=== PATIENT | female | born 1990 | race Caucasian/White ===

== ENCOUNTER 2021-01-11 14:30 | Inpatient (IN) | payer BC, SELFPAY ==
[~2021-01-11] VITALS: Ht 172.7 cm; Wt 60.3 kg
[2021-01-11 14:39] VITALS: BP 135/75
--- NOTE | 2021-01-11 14:43 | NUR ---
PT TO AWAIT IN LOBBY
--- NOTE | 2021-01-11 17:15 | NUR ---
DR SAID EXAMINING PT
[2021-01-11] MEDS ORDERED: NACL 0.9% 1,000 ML IV ONE (17:25)
[2021-01-11] MEDS ORDERED: CEFEPIME 1,000 MG in DEXTROSE 5% 50 ML IV ONE (17:35)
[2021-01-11 17:46] LABS: APPEARANCE,URINE SL CLOUDY (CLEAR); BILIRUBIN,URINE NEGATIVE (NEGATIVE); BLOOD, URINE NEGATIVE (NEGATIVE); COLOR,URINE YELLOW (YELLOW); LEUKOCYTE ESTERASE ,URINE NEGATIVE (NEGATIVE); NITRITE, URINE NEGATIVE (NEGATIVE); UGLUCOSE NEGATIVE (NEGATIVE)
[2021-01-11 17:50] LABS: BASOPHILS % (AUTO) 0.4 % (0.0-2.0); EOSINOPHILS # (AUTO) 0.2 K/uL (0-0.4); EOSINOPHILS % (AUTO) 1.5 % (0.0-4.0); HEMATOCRIT 40.4 % (36-48); HEMOGLOBIN 13.4 g/dL (12.0-16.0); LYMPHOCYTES # (AUTO) 2.7 K/uL (2.5-16.5); LYMPHOCYTES % (AUTO) 23.1 % (20.5-51.1); MEAN CORPUSCULAR HEMOGLOBIN 31 pg (27-31); MEAN CORPUSCULAR HGB CONC 33 g/dL (33-37); MEAN CORPUSCULAR VOLUME 93.3 fL (80-94); MONOCYTES # (AUTO) 0.9 K/uL (0.8-1.0); MONOCYTES % (AUTO) 7.5 % (1.7-9.3); NEUTROPHILS % (AUTO) 67.5 % (42.2-75.2); PLATELET COUNT (AUTO) 316 K/uL (140-450); RED BLOOD CELL COUNT(AUTO) 4.33 MIL/uL (4.20-5.40); RED CELL DISTRIBUTION WIDTH 13.4 % (11.6-13.7); WHITE BLOOD COUNT (AUTO) 11.8 K/uL (4.8-10.8)
[2021-01-11] MEDS ORDERED: CEFEPIME 1,000 MG VIAL ONE (17:59)
[2021-01-11 18:33] LABS: ALBUMIN 3.8 g/dL (3.4-5.0); ANION GAP 16.1 (8-16); CARBON DIOXIDE 26.9 mmol/L (21-32); CREATININE 0.7 mg/dL (0.6-1.3); TOTAL BILIRUBIN 0.2 mg/dL (0.0-1.0)
--- NOTE | 2021-01-11 18:34 | NUR ---
30 Y/O F BIB SPOUSE FROM HOME, PATIENT PRESENTS TO ED WITH ABD CRAMPING, NAUSEA, URINARY URGENCY AND RETENTION. PT STATES SINCE BEGINNING OF (11 WEEKS) SHE HAS BEEN HAVING UTI SYMPTOMS AND WAS TOLD TO COME TO ER TO TRWAT ANTIBIOTIC RESISTANT BACTERIA; SKIN IS PINK/WARM/DRY; AAOX4 WITH EVEN AND STEADY GAIT; LUNGS CLEAR BL; HR EVEN AND REGULAR; PT DENIES ANY FEVER, CP, SOB, OR COUGH AT THIS TIME; VSS; PATIENT POSITIONED FOR COMFORT; HOB ELEVATED; BEDRAILS UP X2; BED DOWN. ER MD MADE AWARE OF PT STATUS. PMH: DENIES NKA 5G 4T 0P 0A 4L
[2021-01-11] MEDS ORDERED: MORPHINE SULFATE 2 MG/ML SYR IVP PRN (19:20)
[2021-01-11] MEDS ORDERED: POTASSIUM CHLORIDE 10 MEQ TABER PO PRN (19:20)
[2021-01-11] MEDS ORDERED: ONDANSETRON 4 MG/2 ML VIAL IVP PRN (19:20)
[2021-01-11] MEDS ORDERED: DOCUSATE SODIUM 100 MG GELCAP PO PRN (19:20)
[2021-01-11] MEDS ORDERED: MAG SULF 2000 MG/WATER PREMIX 50 ML IV PRN (19:20)
[2021-01-11] MEDS ORDERED: ACETAMINOPHEN 325 MG TAB PO PRN (19:20)
[2021-01-11] MEDS ORDERED: HYDROcodone/APAP 5/325 MG 1 TAB TAB PO PRN (19:20)
[2021-01-11] MEDS ORDERED: LORazepam 2 MG/ML VIAL IM/IVP PRN (19:20)
[2021-01-11] MEDS ORDERED: ZOLPIDEM 5 MG TAB PO PRN (19:20)
--- NOTE | 2021-01-11 19:20 | NUR ---
received report from Rebekah HICKS for continuity of care
[2021-01-11 20:03] LABS: PROTHROMBIN TIME 8.9 secs (10.8-13.4)
[2021-01-11] MEDS: NACL 0.9% 1,000 ML IV SCH (20:14)
[2021-01-11 20:20] LABS: CHOL/HDL RATIO 2.6 (1-4.5); FREE T4 (FREE THYROXINE) 0.91 ng/dL (0.76-1.46); PHOSPHORUS 4.2 mg/dL (2.5-4.9); THYROID STIMULATING HORMONE 0.22 uIU/mL (0.34-3.74)
[2021-01-11 20:20] LABS: BARBITURATE, URINE NEGATIVE ng/ml (NEG <=200); BENZODIAZEPINE, URINE NEGATIVE ng/mL (NEG <=200); CANNABINOID, URINE NEGATIVE ng/mL (NEG <=50); COCAINE, URINE NEGATIVE ng/mL (NEG <=300); OPIATE, URINE NEGATIVE ng/mL (NEG <=2000); PHENCYCLIDINE SCREEN,URINE NEGATIVE ng/mL (NEG <=25)
--- NOTE | 2021-01-11 20:37 | NUR ---
patient ambulated to the bathroom
--- NOTE | 2021-01-11 21:27 | NUR ---
Patient appears to be resting comfortably in bed. Vital Signs within normal limits. Respirations even and unlabored. Safety measures in place, will continue to monitor patient
--- NOTE | 2021-01-11 21:56 | NUR ---
patient ambulated to the bathroom
--- NOTE | 2021-01-11 22:05 | NUR ---
attached patients back on fluid, and cardiac monitors. Safety measures are in place. will continue to monitor patient.
--- NOTE | 2021-01-12 00:04 | NUR ---
patient ambulated to the bathroom
--- NOTE | 2021-01-12 00:26 | NUR ---
Patient will be admitted to care of [facility]. Admited to telemetry. Will go to [id number]. Belongings list completed. Report to Amie HICKS.
--- NOTE | 2021-01-12 00:45 | NUR ---
PT BROUGHT UP TO UNIT BY W/C, SHE IS AOX4 UZBEK SPEAKING AND ON ROOM AIR. PT HAS A 20G ON THE LEFT AC RUNNING NORMAL SALINE AT 100MLS/HR. PT DENIES ANY PAIN, SHE WAS ABLE TO AMBULATE TO THE TOILET AND BACK INDEPENDENTLY. PT REQUESTED A SANDWICH WHICH WAS GIVEN TO HER. IV SITE FLUSHED PATENT. MRSA SWAB DONE ADMISSION QUESTIONS ASKED AND ANSWERED. ALL UNIVERSAL PRECAUTIONS IN PLACE.
[2021-01-12 01:00] VITALS: BP 111/63
--- NOTE | 2021-01-12 01:00 | NUR ---
CALLED L AND D TO HAVE NURSE COME FOR THE TONES, PT MADE AWARE. PT MADE AWARE TO STRAIN URINE FOR CALCULI ORDERED. PT VERBALIZED UNDERSTANDING.
--- NOTE | 2021-01-12 02:30 | NUR ---
ROUNDS DONE, PT IN BED NO C/O VOICED, FLUIDS RUNNING ORDERED. ALL UNIVERSAL PRECAUTIONS IN PLACE.
--- NOTE | 2021-01-12 03:41 | NUR ---
TONES DONE AT BEDSIDE, HEART RATE IS 145-160 (NORMAL RANGE).
[2021-01-12 04:00] VITALS: BP 107/50
--- NOTE | 2021-01-12 05:00 | NUR ---
PT IN BED AROUSABLE TO NAME, LAB HERE TO DRAW BLOOD. V/S FOLLOWS: T 97.2 P 71 R 20 B/P 107/50 02 98% ON ROOM AIR. FLUIDS RUNNING ORDERED. NO C/O VOICED AT THIS TIME. ALL UNIVERSAL FALLS PRECAUTIONS IN PLACE.
[2021-01-12] MEDS: NACL 0.9% 1,000 ML IV SCH ×3 (05:33→18:13)
[2021-01-12 07:06] LABS: ALBUMIN 3.1 g/dL (3.4-5.0); ANION GAP 9.5 (8-16); CARBON DIOXIDE 26.4 mmol/L (21-32); CREATININE 0.6 mg/dL (0.6-1.3); POTASSIUM 3.9 mmol/L (3.5-5.1); TOTAL BILIRUBIN 0.2 mg/dL (0.0-1.0)
--- NOTE | 2021-01-12 07:10 | NUR ---
PATIENT HAS BEEN SCREENED AND CATEGORIZED LOW NUTRITION RISK. PATIENT WILL BE SEEN WITHIN 7 DAYS OF ADMISSION. 01/19/21 KELLY ZARATE MS, RDN
[2021-01-12 07:24] LABS: BASOPHILS % (AUTO) 0.3 % (0.0-2.0); EOSINOPHILS # (AUTO) 0.2 K/uL (0-0.4); EOSINOPHILS % (AUTO) 1.9 % (0.0-4.0); HEMATOCRIT 37.6 % (36-48); HEMOGLOBIN 12.9 g/dL (12.0-16.0); LYMPHOCYTES # (AUTO) 2.2 K/uL (2.5-16.5); LYMPHOCYTES % (AUTO) 22.8 % (20.5-51.1); MEAN CORPUSCULAR HEMOGLOBIN 32 pg (27-31); MEAN CORPUSCULAR HGB CONC 34 g/dL (33-37); MEAN CORPUSCULAR VOLUME 92.6 fL (80-94); MONOCYTES # (AUTO) 0.7 K/uL (0.8-1.0); MONOCYTES % (AUTO) 7.3 % (1.7-9.3); NEUTROPHILS # (AUTO) 6.5 K/uL (1.8-7.7); NEUTROPHILS % (AUTO) 67.7 % (42.2-75.2); PLATELET COUNT (AUTO) 269 K/uL (140-450); RED BLOOD CELL COUNT(AUTO) 4.06 MIL/uL (4.20-5.40); RED CELL DISTRIBUTION WIDTH 13.4 % (11.6-13.7); WHITE BLOOD COUNT (AUTO) 9.6 K/uL (4.8-10.8)
[2021-01-12 08:00] VITALS: BP 123/61
--- NOTE | 2021-01-12 08:00 | NUR ---
RECEIVED REPORT FROM WAREHOUSE INCENTIVE SELECTOR AT BEDSIDE FOR CONTINUITY OF CARE. PATIENT ALERT AWAKE ORIENTED X4, NOT IN DISTRESS NOTED. DENIES PAIN. ON IVF ON AND INFUSING WELL. ON MONITOR SHOWS SR. PATIENT IS CONCERNED REGARDING HER ANTIBIOTIC IF SHE WILL GET ONE TODAY. EXPLAINED TO HER THAT WE'RE JUST WAITING FOR THE DOCTOR TO DO ROUNDS, VERBALIZED UNDERSTANDING. WILL CONTINUE TO MONITOR.
[2021-01-12] MEDS ORDERED: PHENAZOPYRIDINE 100 MG TAB PO SCH (09:10)
--- NOTE | 2021-01-12 10:00 | NUR ---
SEEN BY DR. CHAPMAN AND EXPLAINED TO HER THE PLAN OF CARE.
[2021-01-12] MEDS: PHENAZOPYRIDINE 100 MG TAB PO SCH (10:33)
[2021-01-12] MEDS: CEFEPIME 1,000 MG in DEXTROSE 5% 50 ML IV SCH ×2 (10:33→21:39)
--- NOTE | 2021-01-12 11:00 | NUR ---
STARTED ON IV ANTIBIOTIC MAXIPIME AND PYRIDIUM. WILL CONTINUE TO MONITOR.
[2021-01-12 12:00] VITALS: BP 106/53
[2021-01-12 16:00] VITALS: BP 111/63
[2021-01-12] MEDS ORDERED: MAGNESIUM OXIDE 400 MG TAB PO SCH (16:50)
[2021-01-12] MEDS: MULTIVIT/MIN/CA/FE/FA 1 TAB PO SCH (18:11)
--- NOTE | 2021-01-12 19:00 | NUR ---
REPORT GIVEN TO IMPROVEMENT SPECIALIST NURSE AT BEDSIDE FOR CONTINUITY OF CARE. PATIENT IN STABLE CONDITION.
[2021-01-12 20:51] VITALS: BP 120/60
--- NOTE | 2021-01-12 22:18 | NUR ---
I RECEIVED PT IN BED FROM OUT GOING NURSE , PT IS ALERT ORIENTED , DENIES PAIN , VSS , ON RA CLEAR LUNGS ,ON IVF SL INTACT AND PATENT. SKIN IS INTACT .
[2021-01-13] VITALS: BP 125/70
--- NOTE | 2021-01-13 01:03 | NUR ---
PT IS SLEEPING WELL , VSS NO SIGN OF PAIN
[2021-01-13 04:00] VITALS: BP 128/74
[2021-01-13] MEDS: CEFEPIME 1,000 MG in DEXTROSE 5% 50 ML IV SCH ×3 (04:51→21:22)
[2021-01-13 07:23] LABS: BASOPHILS % (AUTO) 0.3 % (0.0-2.0); EOSINOPHILS # (AUTO) 0.2 K/uL (0-0.4); EOSINOPHILS % (AUTO) 1.9 % (0.0-4.0); HEMATOCRIT 37.6 % (36-48); HEMOGLOBIN 12.8 g/dL (12.0-16.0); LYMPHOCYTES % (AUTO) 22.3 % (20.5-51.1); MEAN CORPUSCULAR HEMOGLOBIN 32 pg (27-31); MEAN CORPUSCULAR HGB CONC 34 g/dL (33-37); MEAN CORPUSCULAR VOLUME 93.3 fL (80-94); MONOCYTES # (AUTO) 0.6 K/uL (0.8-1.0); MONOCYTES % (AUTO) 7.1 % (1.7-9.3); NEUTROPHILS # (AUTO) 6.1 K/uL (1.8-7.7); NEUTROPHILS % (AUTO) 68.4 % (42.2-75.2); PLATELET COUNT (AUTO) 278 K/uL (140-450); RED BLOOD CELL COUNT(AUTO) 4.03 MIL/uL (4.20-5.40); RED CELL DISTRIBUTION WIDTH 13.3 % (11.6-13.7); WHITE BLOOD COUNT (AUTO) 8.9 K/uL (4.8-10.8)
[2021-01-13 07:36] LABS: ALBUMIN 3.3 g/dL (3.4-5.0); ANION GAP 10.6 (8-16); CREATININE 0.6 mg/dL (0.6-1.3); POTASSIUM 3.6 mmol/L (3.5-5.1); TOTAL BILIRUBIN 0.4 mg/dL (0.0-1.0)
[2021-01-13] MEDS: MULTIVIT/MIN/CA/FE/FA 1 TAB PO SCH (09:00)
[2021-01-13] MEDS: PHENAZOPYRIDINE 100 MG TAB PO SCH (12:09)
[2021-01-13] MEDS: NACL 0.9% 1,000 ML IV SCH ×2 (12:11→21:20)
[2021-01-13 14:28] VITALS: BP 117/76
[2021-01-13 20:00] VITALS: BP 109/73
--- NOTE | 2021-01-13 20:00 | NUR ---
PATIENT WAS RECEIVED AWAKE AND ALERT, NO S/S OF DISTRESS NOR GRIMACING FOR PAIN.
--- NOTE | 2021-01-13 21:00 | NUR ---
DUE IV MED WAS GIVEN PIGGYBACK TOLERATED WELL.
[2021-01-14] VITALS: BP 126/65
--- NOTE | 2021-01-14 | NUR ---
PATIENT AMBULATED TO THE BATHROOM TO VOID.
--- NOTE | 2021-01-14 02:00 | NUR ---
PATIENT WAS ASLEEP CALMLY IN HER BED.
[2021-01-14 04:00] VITALS: BP 119/70
[2021-01-14] MEDS: CEFEPIME 1,000 MG in DEXTROSE 5% 50 ML IV SCH ×2 (04:39→12:50)
[2021-01-14 06:46] LABS: BASOPHILS % (AUTO) 0.3 % (0.0-2.0); EOSINOPHILS # (AUTO) 0.2 K/uL (0-0.4); HEMATOCRIT 37.9 % (36-48); HEMOGLOBIN 12.7 g/dL (12.0-16.0); LYMPHOCYTES % (AUTO) 23.8 % (20.5-51.1); MEAN CORPUSCULAR HEMOGLOBIN 31 pg (27-31); MEAN CORPUSCULAR HGB CONC 34 g/dL (33-37); MEAN CORPUSCULAR VOLUME 93.4 fL (80-94); MONOCYTES # (AUTO) 0.5 K/uL (0.8-1.0); NEUTROPHILS # (AUTO) 5.7 K/uL (1.8-7.7); NEUTROPHILS % (AUTO) 67.9 % (42.2-75.2); PLATELET COUNT (AUTO) 270 K/uL (140-450); RED BLOOD CELL COUNT(AUTO) 4.05 MIL/uL (4.20-5.40); WHITE BLOOD COUNT (AUTO) 8.4 K/uL (4.8-10.8)
[2021-01-14] MEDS: NACL 0.9% 1,000 ML IV SCH ×2 (06:53→12:58)
--- NOTE | 2021-01-14 07:25 | NUR ---
RECEIVED REPORT FROM DISTRICT SERVICE MANAGER NURSE. PATIENT SITTING IN BED. NO DISTRESS NOTED. DENIES ANY PAIN. AAOX4, SKIN INTACT. IV SITE INTACT, PATENT, AND INFUSING IVF PER MD ORDERS. REVIEWED PLAN OF CARE WITH PATIENT. PATIENT VERBALIZED UNDERSTANDING. SAFETY MEASURES IN PLACE, CALL LIGHT WITHIN REACH. WILL CONTINUE TO MONITOR.
--- NOTE | 2021-01-14 07:42 | NUR ---
ALL REPORTS WERE GIVEN, TRANSFER OF CARE ENDORSED.
[2021-01-14 07:56] LABS: ANION GAP 12.1 (8-16); CARBON DIOXIDE 24.7 mmol/L (21-32); CREATININE 0.6 mg/dL (0.6-1.3); POTASSIUM 3.8 mmol/L (3.5-5.1); TOTAL BILIRUBIN 0.4 mg/dL (0.0-1.0)
[2021-01-14 08:00] VITALS: BP 122/67
[2021-01-14] MEDS: MULTIVIT/MIN/CA/FE/FA 1 TAB PO SCH (08:46)
[2021-01-14] MEDS: PHENAZOPYRIDINE 100 MG TAB PO SCH (08:46)
--- NOTE | 2021-01-14 08:46 | NUR ---
SCHEDULED MEDICATIONS DUE GIVEN. WILL CONTINUE TO MONITOR.
--- NOTE | 2021-01-14 12:50 | NUR ---
SCHEDULED MEDICATIONS DUE GIVEN. DISCHARGE INSTRUCTIONS PROVIDED TO PATIENT IN PREFERRED LANGUAGE OF [place]OREAN. MEDICATION REGIMEN AND SIDE EFFECTS, DIET REGIMEN, AND FOLLOW-UP WITH PCP AND OBGYN PROVIDED. ANSWERED ALL OF PATIENT'S QUESTIONS REGARDING. PATIENT VERBALIZED UNDERSTANDING. AT BEDSIDE. WILL WAIT FOR LAST CEFEPIME IV DOSE TO FINISH BEFORE BEING DISCHARGE. WILL CONTINUE TO MONITOR.
--- NOTE | 2021-01-14 13:35 | NUR ---
IV ANTIBX COMPLETED. IV SITE REMOVED WITH MINIMAL BLOOD AND LUMEN COMPLETELY INTACT. ID BANDS REMOVED. ESCORTED PATIENT DOWN TO LOBBY VIA STEADY AMBULATION. PATIENT DISCHARGED AT THIS TIME IN STABLE CONDITION TO HOME.
--- NOTE | 2021-01-15 09:06 | NUR ---
LATE ENTRY- CEFEPIME HCL DISCONTINUED AT 0026. NS 0.9% DISCONTINUED AT 0026.
== END 2021-01-14 13:35 | disposition home or self-care (01) | DRG 833 ==
LOC: MED 14:30 → MTU 19:22
PROVIDERS: ADMIT Family Medicine; ATTEND Family Medicine
DX: O23.41 Unspecified infection of urinary tract in pregnancy, first trimester (principal); O99.281 Endocrine, nutritional and metabolic diseases complicating pregnancy, first trimester; E83.42 Hypomagnesemia; O25.11 Malnutrition in pregnancy, first trimester; Z20.822 Contact with and (suspected) exposure to COVID-19; B96.5 Pseudomonas (aeruginosa) (mallei) (pseudomallei) as the cause of diseases classified elsewhere; Z3A.11 11 weeks gestation of pregnancy; Z87.440 Personal history of urinary (tract) infections
CPT/HCPCS: 36415; 76770; 80053; 80305; 81003; 82150; 83036; 83605; 83690; 83735; 83880; 84100; 84439; 84443; 84484; 85025; 85610; 85730; 87040; 87081; 87086; 93005; 96361; 96365; 99285; J0692; J7060; Q0092